=== PATIENT | male | born 1960 | race Caucasian/White ===

== ENCOUNTER → 2016-09-01 | Outpatient (CLI) | payer BC ==
[~2016-09-01] VITALS: Ht 175.3 cm; Wt 102.1 kg
[~2016-09-01] MED LIST: AMLODIPINE BESY10 MG PO; ASPIRIN325 PO; ATORVASTATIN CA80 MG PO; BYSTOLIC10 MG PO; DIOVAN320 MG PO; ESCITALOPRAM OX20 MG PO; FISH OIL 1,001000 M2 PO; IRON325 PO; MOBIC7.5 MG PO; SINGULAIR 10 MG10 M1 PO; VITAMINC500 PO; ZETIA10 MG PO
--- NOTE | ~2016-09-01 | HPC ---
[facility] [place] [address] PAIN MANAGEMENT CONSULTATION Name: SACHA GARVIN Room #: REG [facility] Olesya.#: [id number] Admission: 09/01/16 Attend Phys: Courtney Zhang MD Discharge: Date of : 58 Report #: [id number] THIS REPORT FOR: //name// CC: Courtney Marcial MD DATE OF SERVICE: 09/01/2016 CHIEF COMPLAINT: Low back pain with pain radiating down into the right hip and leg with numbness, weakness and tingling. HISTORY OF PRESENT ILLNESS: The patient is a 56-year-old gentleman who has been referred to the pain clinic for evaluation of back, leg and calf pain. The patient started to experience pain and discomfort in the fall of 2015. Over the last few months, he has noted worsening of his pain to the point that he is having difficulty walking. He rates it as an 8/10. He notes that there is pain in his hip radiating down into his leg and swelling in the lower portion of his back involving his calf. Pain is made worse when he is active and when he is walking a lot. Pain is better when he is not doing as much and resting. He describes it as continuous, shooting, sharp and stabbing with activity. He has not had back surgery. He denies any significant trauma in the past. Denies any bowel or bladder dysfunction. ALLERGIES: No known drug allergies. MEDICATIONS: Iron 325 mg daily, fish oil, vitamin C, aspirin 325 mg daily, meloxicam 7.5 mg daily, Lipitor 80 mg daily, Zetia 10 mg daily, amlodipine 10 mg daily, Singulair 10 mg at bedtime, Bystolic 10 mg, Diovan 320 mg daily, escitalopram 20 mg daily. PAST MEDICAL HISTORY: Hypertension, cardiac disease, coronary artery disease, joint disease/arthritis. PAST SURGICAL HISTORY: Open heart surgery 05/2005, thumb surgery 2007, compound fracture 11/2012. 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 Denies use of tobacco at this point. The patient usually drinks a 20-pack beverage weekly. REVIEW OF SYSTEMS: Questionnaire 14-point reveals generally good health, wears glasses, heart trouble, otherwise unremarkable. LABORATORY DATA: the lumbar spine dated 07/28/2016 reveals normal alignment. Mild degenerative changes noted in the lumbar spine. There is some [facility] [address] [place] [address] PAIN MANAGEMENT CONSULTATION Name: SACHA GARVIN Room #: REG [facility]#: [id number] Admission: 09/01/16 Attend Phys: Courtney Zhang MD Discharge: Date of : 58 Report #: [id number] disk narrowing at L5-S1. No fractures or subluxations identified. No definite bone destruction. Note made of extensive vascular calcification and bilateral renal artery stents. Lumbar spondylosis. PHYSICAL EXAMINATION: Blood pressure 139/71, pulse 66, respiratory rate 18, room air O2 saturation is 97%. The patient's height 175 cm. Weight 102 kilograms. BMI is 33. The patient has not fallen in the last 3 months. He notes pain and discomfort in his lumbar area. It radiates down his right hip into his right leg. Has a positive straight leg raise. Walks with an antalgic gait because of pain and discomfort in the right leg with pain and discomfort radiating down to the anterior portion of his calf. This is in the L5/L4 distribution. Rates his pain as an 8/10 at this juncture. IMPRESSION: Lumbar radiculopathy with an L4-L5 dermatomal distribution. RECOMMENDATION: We discussed treatment options with the patient. Risks and benefits of an epidural steroid injection were discussed. Possible complications were reviewed. A model was used to indicate the area of probable pathology and the patient elects to proceed. PROCEDURE NOTE: The patient was placed in the prone position. Fluoroscopy was used to identify the L4-L5 interspace. This area had been sterilely prepped with Betadine and infiltrated with 0.25% bupivacaine. Total of 80 mg Depo-Medrol, 40 mg triamcinolone was injected. The patient tolerated the procedure well. There were no complications. We would like to thank you for letting us participate in his care. We hope he continues to improve. <ELECTRONICALLY SIGNED> By: Courtney Zhang MD 09/10/16 0829 1432 1536 Courtney Zhang MD /nt
[2016-09-01 12:21] VITALS: BP 139/71
== END | disposition home or self-care (01) ==
LOC: PAIN 05:51
DX: M54.16 Radiculopathy, lumbar region (principal); I10 Essential (primary) hypertension; I25.10 Atherosclerotic heart disease of native coronary artery without angina pectoris; M19.90 Unspecified osteoarthritis, unspecified site

== ENCOUNTER → 2016-09-17 | Outpatient (CLI) | payer BC ==
[~2016-09-17] VITALS: Ht 175.3 cm; Wt 104.9 kg
--- NOTE | ~2016-09-17 | HPC ---
[facility] [place] [address] [place] [address] PAIN MANAGEMENT CONSULTATION Name: SACHA GARVIN Room #: REG [facility] Lavon#: [id number] Admission: 09/17/16 Attend Phys: Courtney Zhang MD Discharge: Date of : 58 Report #: [id number] THIS REPORT FOR: //name// CC: Courtney Marcial MD DATE OF SERVICE: 09/17/2016 CHIEF COMPLAINT: The last injection was helpful. FOLLOWUP HISTORY: The patient is a 56-year-old gentleman who has been seen in the pain clinic because of pain and discomfort in the lower portion of his back with pain radiating down into his leg. He notes that the pain is exacerbated by walking. He feels that he got greater than 50% improvement after the last injection. He rates his pain as a 5-6. He continues to have some pain, which radiates down into his right hip into the right leg. IMPRESSION: Lumbar radiculopathy at the L4-L5 dermatomal distribution improved after the last epidural steroid injection. RECOMMENDATIONS: We discussed treatment options with the patient. Risks and benefits of another epidural steroid injection were reviewed. Possible complications were discussed. The patient elects to proceed. PROCEDURE NOTE: The patient was placed in the prone position. Fluoroscopy was used to identify the L4-L5 interspace. This area had been sterilely prepped with Betadine and infiltrated with 0.25% bupivacaine. Total of 80 mg Depo-Medrol, 40 mg triamcinolone and 2 mL of 0.25% bupivacaine was injected. The patient tolerated the procedure well. There were no complications. His pain decreased to 3 at the time of discharge. He will follow up in the future as needed. We would like to thank you for letting us participate in his care. We hope he continues to improve. A script for Mobic 15 mg 1 p.o. every day has been written. By: 1539 0151 Courtney Zhang MD /nt
[2016-09-17 10:54] VITALS: BP 110/67
== END ==
LOC: PAIN 07:49
DX: M54.16 Radiculopathy, lumbar region (principal); Z87.891 Personal history of nicotine dependence

== ENCOUNTER → 2016-11-21 | Outpatient (CLI) | payer BC | LOC: MRI 07:21 | DX: M48.06 Spinal stenosis, lumbar region (principal); M54.16 Radiculopathy, lumbar region; M51.26 Other intervertebral disc displacement, lumbar region ==

== ENCOUNTER 2016-12-11 06:41 | Observation (INO) | payer BC ==
[~2016-12-11] VITALS: Ht 177.8 cm; Wt 100.6 kg
[2016-12-11] VITALS (28 sets, daily range): BP systolic 102–158; BP diastolic 53–87
--- NOTE | ~2016-12-11 | CATHLAB ---
[facility] [address] [place] [address] INVASIVE PROCEDURE REPORT Name: SACHA GARVIN Room #: 200-I [facility] IN .R.#: [id number] Admission: 12/11/16 Attend Phys: Chi Chaudhry, Discharge: 12/12/16 Date of : 58 Date of Service: 12/26/16 1815 Report #: [id number] THIS REPORT FOR: //name// APPROVED REPORT Patient Details Patient Status: Out-Patient Room #: The patient is a 56 year-old male Event Personnel Chi Chaudhry Construction Safety Manager, Buffy Del Cid RN RN, Contreras Simental RN RN, Agnes Duong Scrub, Laurel Warren RTR Monitor, Kaylyn Zhang Scrernst Procedures Performed Art Access - R femoral artery* LESA Place w/wo Plasty Single RCA [id number] [id number] Initial Mod Sed Same Phys/QHP Gr5y 069082 Coronary Angiography Only [id number] CORANG Hemostasis with Manual pressure , Selective Right and Left Coronary Angiography Procedure Narrative The patient was brought electively to the Cardiac Catheterization Laboratory and was prepped and draped in a sterile manner. The right femoral was infiltrated with 1% Lidocaine subcutaneous anesthesia. A PINNACLE 6FR Sheath #[id number] sheath was inserted into the RFA^. Coronary angiography was performed using coronary diagnostic catheters. The right coronary system was accessed and visualized with a JR 4 Guide catheter. The patient tolerated the procedure well and there were no complications associated with the procedure. There was no hematoma. Intraoperative Conscious Sedation Sedation start time: 08 Case end Time: 08 Fentanyl 100.0 mcg Versed 2.0 mg Fluoro Time: 4.29 minutes Dose: DAP 3979.40 cGycm2 491 mGy Contrast Type and Amount: Omnipaque 65 ml Hemodynamics The aortic pressure is 121/73 mmHg with a mean of 94 mmHg. PCI Technique Lesion Anticoagulation was achieved with Heparin. Patient was preloaded with [facility] [address] [place] [place] [address] INVASIVE PROCEDURE REPORT Name: SACHA GARVIN Room #: 200-I [facility] IN [facility].#: [id number] Admission: 12/11/16 Attend Phys: Chi Chaudhry, Discharge: 12/12/16 Date of : 58 Date of Service: 12/26/16 1815 Report #: [id number] Effient PO 30 mg. Percutaneous coronary intervention was performed on the Unspecifiedmid right coronary artery. A LAUNCHER 6FR FR 4 #[id number] Guide Catheter was used to engage the SVG to RCA ostium. A Luge Wire .014 x 182CM #[id number] Interventional Guidewire was used to cross the lesion. BALLOON DILATION A Balloon catheter Sprinter OTW 2.5 x 12 #[id number] was inserted and inflated up to 10.00atm for 21seconds. STENT DEPLOYMENT A drug-eluting stent RESOLUTE OTW 2.75 X 12 #[id number] was inserted and inflated up to 10.00atm for 18seconds. Additional Inflation: 12.00atm for 27seconds. Conclusion #1 successful PTCA stent drug-eluting 2.75 x12 resolute medicated stent healed in 0% residual postdilated 2.8 mm in size placed in the SVG to the PDA graft mid vessel Recommendations continue dual antiplatelet therapy no lifting for 48 hours no lying in a tub Jacuzzi or Lam for one week Patient to return to CV holding and then CCU overnight. Hemodynamically stable no chest pain or anginal complaints upon transfer <ELECTRONICALLY SIGNED> By: Chi Chaudhry MD, [facility] 12/26/161814 14 14 Chi Chaudhry MD, FACC /INF
[2016-12-11] MEDS ORDERED: TOPROL XL100 MG PO (06:52)
[2016-12-11 07:29] LABS: HEMATOCRIT 38.8 % (42.0-52.0); MCH 31.6 pg (26.0-34.0); MCHC 33.6 g/dL (28.0-37.0); MCV 94.1 fL (80.0-100.0); RBC 4.12 mil/uL (4.50-6.00); RDW 16.4 % (10.5-14.5); WBC 8.2 thou/uL (4.0-11.0)
[2016-12-11] MEDS ORDERED: EFFIENT10 MG PO (07:30)
[2016-12-11 07:45] LABS: CALCIUM 9.7 mg/dL (8.5-10.1); CREATININE 0.8 mg/dL (0.7-1.3); POTASSIUM 4.4 mmol/L (3.5-5.1)
[2016-12-11] MEDS ORDERED: BYSTOLIC 5 MG5 M1 PO (15:48)
[2016-12-12 03:02] VITALS: BP 120/56
[2016-12-12 08:30] VITALS: BP 133/68
[2016-12-12] MEDS ORDERED: ASPIRIN325 PO (10:29)
[2016-12-12 10:51] VITALS: BP 133/68
== END 2016-12-12 11:50 | disposition home or self-care (01) ==
LOC: CATH 06:41 → 2N 09:39 → CATH 11:44 → 2N 12-12 11:50
PROVIDERS: Internal Medicine Cardiovascular Disease
DX: I25.118 Atherosclerotic heart disease of native coronary artery with other forms of angina pectoris (principal); I73.9 Peripheral vascular disease, unspecified; I10 Essential (primary) hypertension; E78.00 Pure hypercholesterolemia, unspecified; M54.17 Radiculopathy, lumbosacral region; I70.1 Atherosclerosis of renal artery; M54.5 Low back pain; I65.23 Occlusion and stenosis of bilateral carotid arteries; Z87.891 Personal history of nicotine dependence; Z72.89 Other problems related to lifestyle; Z95.5 Presence of coronary angioplasty implant and graft

== ENCOUNTER → 2017-01-30 | Outpatient (CLI) | payer OTHER ==
[~2017-01-30] VITALS: Ht 175.3 cm; Wt 102.1 kg
[~2017-01-30] MED LIST changes: +BYSTOLIC 5 MG5 M1 PO; +EFFIENT10 MG PO; +TOPROL XL100 MG PO
--- NOTE | ~2017-01-30 | HPC ---
[facility] [place] [address] [place] [address] PAIN MANAGEMENT CONSULTATION Name: SACHA GARVIN Room #: REG ROSARIO DacostaDerek#: [id number] Admission: 01/30/17 Attend Phys: Courtney Zhang MD Discharge: Date of : 58 Report #: [id number] THIS REPORT FOR: //name// CC: Courtney Marcial MD DATE OF SERVICE: 01/30/2017 FOLLOWUP COMPLAINT: Pain in the back and down into leg. FOLLOWUP HISTORY: The patient is a 56-year-old gentleman who has been seen in the pain clinic because of lumbar radiculopathy. He has undergone epidural steroid injections with benefit. He has noted a recurrence of his pain. Unfortunately since we saw him last, he has had a stent placed. He is followed by Dr. Chaudhry. He is on a blood thinning medication. He would like to proceed with another epidural steroid injection. He has noted improvement in his pain for a short period of time with use of hydrocodone. He has gotten these from Dr. Marcial. He would like to proceed with another injection. He has been using Mobic. He also takes a baby aspirin. He has noticed an increased number of bruises and easy bruisability since onset of his blood thinning medication. PHYSICAL EXAMINATION: Blood pressure 157/102, pulse 96, respiratory rate 16, room air saturation 99%. Height 5 feet 9 inches, weight is 225 pounds, BMI is 32. The patient has pain and discomfort which is radiating down into the L5-L4 distribution. He would like to proceed with another epidural steroid injection. IMPRESSION: 1. Lumbar radiculopathy at the L4-L5 dermatomal distribution, improved after the last injection by greater than 50%. 2. Cardiac disease status post stent placement and treated with an anticoagulant. 3. Peripheral vascular disease. The patient states he has a stenotic area up in the left neck. He is planning on having surgery on this in the future. RECOMMENDATION: The patient will follow up with Dr. Chaudhry. If he is able to stop his blood thinner, we will proceed with an epidural steroid injection. He will continue to get opioid medications from one physician. He has gotten them from Dr. Duncan Marcial will follow up with him in that regard. We would like to thank you for letting us participate in his care. We hope he continues to improve. By: 1414 1453 Courtney Zhagn MD /
[2017-01-30 13:30] VITALS: BP 157/102
== END | disposition home or self-care (01) ==
LOC: PAIN 06:58
DX: M54.16 Radiculopathy, lumbar region (principal); I73.9 Peripheral vascular disease, unspecified; I51.9 Heart disease, unspecified; Z68.32 Body mass index [BMI] 32.0-32.9, adult; Z87.891 Personal history of nicotine dependence

== ENCOUNTER → 2017-02-18 | Outpatient (CLI) | payer OTHER ==
[~2017-02-18] VITALS: Ht 175.3 cm; Wt 105.7 kg
[~2017-02-18] MED LIST changes: +HYDROCODONE-APA1 TA1 PO
--- NOTE | ~2017-02-18 | HPC ---
[facility] [place] [address] [place] [address] PAIN MANAGEMENT CONSULTATION Name: SACHA GARVIN Room #: REG ROSARIO Lavon#: [id number] Admission: 02/18/17 Attend Phys: Courtney Zhang MD Discharge: Date of : 58 Report #: [id number] THIS REPORT FOR: //name// CC: Courtney Marcial MD DATE OF SERVICE: 02/18/2017 FOLLOWUP COMPLAINT: Pain improved greater than 50%. "I am having some pain in my left leg in the inner ankle area. I also have a sore spot in the back of my hip." FOLLOWUP HISTORY: The patient is a 56-year-old gentleman who has been seen in the pain clinic because of lumbar radiculopathy. He has undergone an epidural steroid injection at the last visit. He returns today indicating that his pain has improved overall, but he is still having pain. He has some pain to a tender area in the right posterior spine. He also has pain and discomfort that continues to radiate down from his right leg into the calf with numbness, tingling and weakness. He denies any complication from the last injection. He would like to proceed with another epidural steroid injection. PHYSICAL EXAMINATION: Blood pressure 197/102, pulse 101. Followup blood pressure is 175/93. He has pain and discomfort in the low back area in the posterior superior iliac spine area. He has pain in the right leg, hip, buttocks with radiation down into his leg in the L5 distribution. He continues to have some shooting pain, tingling and aching. IMPRESSION: 1. Lumbar radicular pain at the L4-L5 dermatomal distribution, improved after the last injection by greater than 50%. 2. Cardiac issues, status post stent placement and treated with anticoagulant. 3. Peripheral vascular disease. The patient has an aortic stent in place. 4. Stenotic area in the left neck with consideration of surgery in the future. RECOMMENDATIONS: We discussed treatment options with the patient. Risks and benefits of the procedure were again reviewed. Possible complications of the procedure, which could include but are not limited to infection, increased muscle soreness, headache, bleeding, muscle or nerve trauma. The patient elects to proceed. PROCEDURE NOTE: The patient was placed in the prone position. Fluoroscopy was used to identify the L4-L5 interspace. This area had been sterilely prepped with Betadine and infiltrated with 0.25% bupivacaine. Total of 80 mg Depo-Medrol, 40 mg triamcinolone and 2 mL of 0.25% bupivacaine was injected. [address] [address] PAIN MANAGEMENT CONSULTATION Name: SACHA GARVIN Room #: REG Yadiel Doll#: [id number] Admission: 02/18/17 Attend Phys: Courtney Zhang MD Discharge: Date of : 58 Report #: [id number] The patient tolerated the procedure well. There were no complications. A total of 9 seconds fluoroscopy time was used. By: 1234 0220 Courtney Zhang MD /
[2017-02-18 09:22] VITALS: BP 197/102
== END ==
LOC: PAIN 07:26
DX: M54.16 Radiculopathy, lumbar region (principal); I51.89 Other ill-defined heart diseases; I73.9 Peripheral vascular disease, unspecified; I10 Essential (primary) hypertension; Z79.899 Other long term (current) drug therapy; Z79.82 Long term (current) use of aspirin; Z79.891 Long term (current) use of opiate analgesic; Z87.891 Personal history of nicotine dependence

== ENCOUNTER → 2017-03-11 | Outpatient (CLI) | payer OTHER ==
[~2017-03-11] VITALS: Ht 175.3 cm; Wt 101.6 kg
[~2017-03-11] MED LIST changes: +FLEXERIL PO; +PLAVIX 75 MG TA75 M1 PO
--- NOTE | ~2017-03-11 | HPC ---
[facility] [address] [place] [address] PAIN MANAGEMENT CONSULTATION Name: SACHA GARVIN Room #: REG ROSAIRO DacostaeDrek#: [id number] Admission: 03/11/17 Attend Phys: Courtney Zhang MD Discharge: Date of : 58 Report #: [id number] THIS REPORT FOR: //name// CC: Chi Chaudhry MD [facility] Courtney Marcial MD DATE OF SERVICE: 03/11/2017 FOLLOWUP HISTORY: "The pain has returned and is worse. I am unable to put pressure on my leg." FOLLOWUP HISTORY: The patient is a 56-year-old gentleman seen in the pain clinic because of lumbar radiculopathy. He has undergone a series of 3 epidural steroid injections. He continues to have pain, which is quite problematic. He feels that his pain has worsened significantly. He is now walking with use of crutches. He went to the Emergency Room because of the pain. He notes some pain that continues to radiate down into his right leg with numbness in his calf with tingling and is experiencing weakness to the point that he wants to lift his right leg but pulling up on his hands to get his leg into the truck. PHYSICAL EXAMINATION: Blood pressure 134/92, pulse 137, respiratory rate is 16, room air saturation 99 %. Height 5 feet 9 inches, weight 222 pounds, BMI 33. The patient has not fallen, but he is having difficulty walking secondary to increased weakness involving his right leg as well as pain down into the right calf. He rates his pain as a 10/10 today. He moves his right leg with use of his hand. He has noted some increased weakness. He denies any change in bowel or bladder dysfunction. IMPRESSION: 1. Lumbar radicular pain at L4-L5 dermatomal distribution with increased weakness and pain. The patient states that he is unable to engage in activities of daily living because of the change in his pain and discomfort. 2. Cardiac issues -- status post stent placement and is treated with anticoagulant therapy. 3. Peripheral vascular disease -- patient has an aortic stent in place. 4. Stenotic area in the left neck with consideration of Vascular Surgery in the neck in the future. RECOMMENDATIONS: We discussed treatment options with the patient. Given that he has noted increased pain and discomfort with weakness in his right leg, which requires that he uses his arms to help move his leg. We would recommend that he follow up with a neurosurgeon/orthopedic surgeon. Possible complications of prolonged weakness in his right leg were explained. Possibility of continued paresis in the limb was explained if he suffered prolonged nerve [address] [address] PAIN MANAGEMENT CONSULTATION Name: SACHA GARVIN Room #: REG ROSARIO Doll#: [id number] Admission: 03/11/17 Attend Phys: Courtney Zhang MD Discharge: Date of : 58 Report #: [id number] irritation/pressure. He has a history of cardiac disease and vascular disease. He will need to follow up with his tree planter Dr. Chaudhry prior to any interventions. We will have him see one of the area neurosurgeons. He will call us if he has any problems or concerns. We would like to thank you for letting us participate in his care. We hope he continues to improve. <ELECTRONICALLY SIGNED> By: Courtney Zhang MD 03/13/17 1255 1240 0717 Courtney Zhang MD /[facility]
[2017-03-11 09:53] VITALS: BP 134/92
== END | disposition home or self-care (01) ==
LOC: PAIN 07:08
DX: M54.16 Radiculopathy, lumbar region (principal); I73.9 Peripheral vascular disease, unspecified; Z98.890 Other specified postprocedural states; Z68.33 Body mass index [BMI] 33.0-33.9, adult; Z87.891 Personal history of nicotine dependence

== ENCOUNTER 2017-05-22 05:16 | Inpatient (IN) | payer OTHER ==
[~2017-05-22] VITALS: Ht 177 cm; Wt 106.6 kg
[2017-05-22] VITALS (7 sets, daily range): BP systolic 84–124; BP diastolic 49–84
--- NOTE | ~2017-05-22 | O ---
[facility] [place] [address] [place] [address] OPERATIVE REPORT Name: SACHA GARVIN Room #: 239-P [facility] IN M.R.#: [id number] Admission: 05/22/17 Attend Phys: Mello Ayala MD Discharge: 05/23/17 Date of : 58 Report #: [id number] THIS REPORT FOR: //name// CC: Mello Marcial DATE OF SERVICE: 05/22/2017 PREOPERATIVE DIAGNOSIS: Left internal carotid artery stenosis, asymptomatic. FINAL DIAGNOSIS: Left internal carotid artery stenosis, asymptomatic. OPERATIVE PROCEDURE PERFORMED: Left carotid endarterectomy with bovine pericardial patch angioplasty. SURGEON: Mello Ayala MD DIRECTOR SUPPLY: Nara Moreno. ANESTHESIA: General. OPERATIVE INDICATIONS: The patient is a 57-year-old male with a known history of left internal carotid artery stenosis. His stenosis is asymptomatic. The patient has been evaluated and found to have a high-grade stenosis in the left internal carotid artery greater than 80% and on the right side, there is a moderate stenosis approximately 50-60%. The patient is admitted at this time now after informed consent has been obtained for carotid endarterectomy. OPERATIVE SUMMARY: The patient was brought to the operating room and placed on the OR table in supine position. After anesthesia was induced via the general endotracheal route and monitoring lines have been positioned, the patient was prepped and draped in sterile fashion with chlorhexidine. An oblique incision was made in the left neck. Dissection was carried down medial to the sternocleidomastoid muscle. The contents of the carotid sheath were dissected free from surrounding tissue. Common internal and external carotid arteries were identified and isolated. The vagus and hypoglossal nerves were identified as was the ansa cervicalis nerve and care was taken not to injure them. The patient was given 15,000 units of intravenous heparin. The internal, then common, and then external carotid arteries were clamped. The common carotid arteriotomy was made and extended up into the internal carotid artery. A 12-Romansh shunt was placed in the internal carotid artery and then into the common carotid artery to provide blood flow to the brain during this case. The plaque was then dissected from the wall. It was amputated proximally. Distally, there was good tapering and an eversion endarterectomy was performed of the external carotid artery. All loose fronds were then debrided from the vessel wall. Distally, I placed a couple of 7-0 Prolene tacking sutures on the [address] [address] OPERATIVE REPORT Name: SACHA GARVIN Room #: 239-P [facility] IN .R.#: [id number] Admission: 05/22/17 Attend Phys: Mello Ayala MD Discharge: 05/23/17 Date of : 58 Report #: [id number] intima. The arteriotomy site was then closed with 6-0 Prolene utilizing a bovine pericardial patch. Prior to completing this closure, the site was flushed both retrograde and antegrade, was irrigated and then deaired by releasing the clamp on the external carotid artery. Once closure was completed, the clamp on the common carotid artery was then opened and then finally the clamp on the internal carotid artery. Protamine was given to reverse the heparin. Once satisfactory hemostasis was achieved, the wound was closed in multiple layers with absorbable suture. It should be noted the EEG monitoring was not performed during this case. <ELECTRONICALLY SIGNED> By: Mello Ayala MD 06/02/17 0805 1541 1614 Mello Ayala MD /nt
--- NOTE | ~2017-05-22 | S ---
[facility] [place] [address] [place] [address] SURGICAL PATH RPT PROCEDURE Name: SACHA GARCIA Room #: 239-P DIS IN M.R.#: [id number] Admission: 05/22/17 Date of : 58 Discharge: 05/23/17 Report #: [id number] Path Case #: [id number] PATHOLOGY REPORT COLLECTION DATE: 05/22/2017 RECEIVED DATE: 05/22/2017 SUBMITTING PHYS: Dr. Mello Ayala OTHER PHYS: Dr. Duncan Marcial SPECIMEN(S) RECEIVED: A.Left carotid plaque * * * * * * * * * * * * FINAL DIAGNOSIS: A. Left carotid plaque: - Calcified atheromatous plaque. PATHOLOGIST: Mello Terry M.D. REPORT ELECTRONICALLY SIGNED BY: Mello Terry M.D. DATE/TIME: 05/25/2017 12:28 * * * * * * * * * * * * GROSS PATHOLOGY: Received in formalin labeled "Sacha Garcia left carotid artery plaque" is a 3.0 x 0.9 x 0.7 cm tubular portion of bello-yellow calcified soft tissue. Approximately 90% of the specimen is comprised of calcifications. Order Picker/Assembler sections are submitted in cassette A1 following decalcification. ([facility]; 05/24/2017) CLINICAL HISTORY: Carotid stenosis. INITIAL CPT CODE(S): A; 82609 Professional services performed by [facility] at [facility] [address], [place] [address] Technical services performed by [facility] at [address] [place] [address], [address], [place] [address] [facility] [address] [place] [address] SURGICAL PATH RPT PROCEDURE Name: SACHA GARCIA RADHA Room #: 239-P DIS IN M.R.#: [id number] Admission: 05/22/17 Date of : 58 Discharge: 05/23/17 Report #: [id number] Path Case #: [id number] [address] PHONE: [phone] DIRECTOR: Stew Woody M.D. * * * END OF REPORT * * *
[~2017-05-22 05:16] MED LIST changes: +AMBIEN 5 MG TABL5 M1 PO; +CARAFATE 11 GM/10 M1 PO; -HYDROCODONE-APA1 TA1 PO; +MOBIC15 MG PO; +NEXIUM40 MG PO; +NORCO 10-325 T1 EACH PO; +NORCO 7.5-3251 EACH PO; +PACERONE 200 M200 M1 PO; +PROTONIX40 M1 PO; +VITAMIN B COMP1 EACH PO
[2017-05-22 09:57] LABS: HEMATOCRIT 39.9 % (42.0-52.0); MCH 27.9 pg (26.0-34.0); MCHC 32.6 g/dL (28.0-37.0); MCV 85.6 fL (80.0-100.0); RBC 4.67 mil/uL (4.50-6.00); RDW 15.4 % (10.5-14.5); WBC 7.5 thou/uL (4.0-11.0)
[2017-05-22 10:02] LABS: CALCIUM 9.6 mg/dL (8.5-10.1); CREATININE 1.1 mg/dL (0.7-1.3); POTASSIUM 3.7 mmol/L (3.5-5.1)
[2017-05-22 10:08] LABS: ALBUMIN 3.6 g/dL (3.4-5.0); TOTAL BILIRUBIN 0.4 mg/dL (<0.1-1.0); TOTAL PROTEIN 7.5 g/dL (6.4-8.2)
[2017-05-22 10:11] LABS: APTT 24.6 Seconds (24.5-32.8); PROTIME 9.8 Seconds (9.3-11.4)
[2017-05-22] MEDS ORDERED: ASPIRIN EC325 M1 PO (15:24)
[2017-05-23] VITALS (10 sets, daily range): BP systolic 101–133; BP diastolic 55–85
[2017-05-23 05:55] LABS: CALCIUM 8.4 mg/dL (8.5-10.1); CREATININE 0.9 mg/dL (0.7-1.3); POTASSIUM 3.6 mmol/L (3.5-5.1)
[2017-05-26] MEDS ORDERED: LASIX 40 MG TAB40 M2 PO (11:23)
[2017-05-26] MEDS ORDERED: K-DUR 20 MEQ T20 MEQ PO (11:23)
== END 2017-05-23 14:45 | disposition home or self-care (01) | DRG 39 ==
LOC: TBA 05:16 → PRE 12:09 → ICU 16:44
PROVIDERS: Nurse Practitioner; Thoracic Surgery (Cardiothoracic Vascular Surgery)
DX: I65.22 Occlusion and stenosis of left carotid artery (principal); I10 Essential (primary) hypertension; I25.10 Atherosclerotic heart disease of native coronary artery without angina pectoris; E78.5 Hyperlipidemia, unspecified; D64.9 Anemia, unspecified; M19.90 Unspecified osteoarthritis, unspecified site; Z95.1 Presence of aortocoronary bypass graft; Z28.21 Immunization not carried out because of patient refusal
CPT/HCPCS: 10078; 50010; 50101; 50386; 50417; 51301; 52279; 56524; 56526; 56528; 56534; 56639; 62110; 62900; 65020; 65040; 70005

== ENCOUNTER 2017-05-28 05:21 | Inpatient (IN) | payer OTHER ==
[~2017-05-28] VITALS: Ht 177.8 cm; Wt 110.7 kg
--- NOTE | ~2017-05-28 | O ---
[facility] [place] [address] OPERATIVE REPORT Name: SACHA GARVIN Room #: 408-P ADM IN M.R.#: [id number] Admission: 06/16/17 Attend Phys: Vance Velázquez MD Discharge: Date of : 58 Report #: [id number] THIS REPORT FOR: //name// CC: Vance Marcial DATE OF SERVICE: 06/16/2017 PREOPERATIVE DIAGNOSIS: Right hip stage 4 avascular necrosis. POSTOPERATIVE DIAGNOSIS: Right hip stage 4 avascular necrosis. PROCEDURE: Right total hip arthroplasty. SURGEON: Vance Velázquez MD. MAINFRAME APPLICATIONS DEVELOPER: Debbie Chin PA-C. INDICATIONS FOR ASSISTANCE: Throughout the case, extensive retraction, manipulation, dislocation and reduction of the hip were required. This was afforded to me by my metal forger's assistant. ANESTHESIA: General endotracheal. IMPLANTS: [employer]hew size 15 high offset Synergy press fit stem, a size 56 R3 acetabular cup with one acetabular screw and a size 40+4 Oxinium head. ESTIMATED BLOOD LOSS: 50 mL. COMPLICATIONS: None. SPECIMENS: None. CONDITION UPON LEAVING THE OPERATING ROOM: Stable. INDICATION FOR PROCEDURE: The patient is a 57-year-old gentleman who has stage 4 avascular necrosis of the right femoral head. He had failed conservative treatment for this and after discussion with him, he elected for right total hip arthroplasty. DESCRIPTION OF PROCEDURE: Risks, benefits, alternatives, complications were discussed in detail with the patient including but not limited to risk of anesthesia, risk of damage to nerves, arteries, blood vessels, risk for infection, bleeding, risk for continued hip pain, leg length discrepancy, instability and need for reoperation. Informed consent was obtained from the patient. The right hip was appropriately marked in the preoperative holding [address] [address] OPERATIVE REPORT Name: SACHA GARVIN Room #: 408-P [facility] IN M.R.#: [id number] Admission: 06/16/17 Attend Phys: Vance Velázquez MD Discharge: Date of : 58 Report #: [id number]. IV vancomycin was given for preoperative antibiotics secondary to previous history of MRSA. He was brought to the operating room, and general endotracheal anesthesia was induced without complication. He was then placed in the left lateral decubitus position with the right hip uppermost. Right hip and lower extremity were prepped and draped in normal sterile fashion. Timeout was performed properly identifying the patient and procedure as well as instrumentation. All in the operating room were in agreement. Standard posterior approach to the hip was made with 10 blade through the skin. Dissection was taken down to the fascia with Bovie cautery, and Hale elevator was used to clean off the fascia. Fascial incision was made with a 10 blade, and this was taken proximally and distally with curved Subramanian scissor. Charnley retractor was placed. Trochanteric bursa was taken down with Bovie cautery. Piriformis tendon was identified, tagged and taken down with Bovie. Short external rotators were also taken down with Bovie cautery. Capsulotomy was made and capsule ends were tagged for later repair. Hip dislocated, and there was extensive avascular necrosis of the femoral head with secondary collapse. Femoral neck cut was made 1 cm proximal to lesser trochanter based on preoperative templating, and the femoral head was removed. Deep acetabular retractors were placed, and the labrum was removed sharply. Pulvinar was removed with Bovie cautery. The acetabulum was then sequentially reamed up to a size 56, at which point, there was excellent bleeding cancellous bone. A size 55 trial cup was placed, found to have a good fit. Final size 56 R3 acetabular cup was placed and one acetabular screw was placed for backup fixation. Polyethylene liner for a 40 head was placed. After this, attention was turned to the femur. This was reamed and broached up to a size 15, at which point, the size 15 broach was stable. This was trialed with a high offset neck and a 40+0 head. Hip was reduced, taken through range of motion, found to be stable, found to have a somewhat short leg length compared to the left side. It was felt this could be made up for in the final implant. Hip was dislocated, and the broach was removed. A final size 15 high offset Synergy press fit stem was placed. This was trialed with a 40+4 head. Hip was reduced, taken through range of motion, found to be stable, found to have equal leg lengths. Hip was dislocated again, and a trial head was removed. A final size 40+4 Oxinium head was placed. Hip was reduced, taken through range of motion, found to be stable, found to have equal leg lengths. Periarticular injection consisting of morphine, ropivacaine, epinephrine and Toradol was placed around the hip joint capsule. A gram of vancomycin was placed deep in the joint. The capsule and piriformis were repaired with 0 FiberWire. Fascia was closed with 0 Vicryl, skin was closed with 2-0 Vicryl, 3-0 Monocril, Dermabond and a ALBERTO dressing was applied. The patient tolerated this procedure well and went to the recovery room under the care of anesthesia postoperatively. <ELECTRONICALLY SIGNED> By: Vance Velázquez MD 06/17/17 1407 1125 1147 Vance Velázquez MD /nt
[~2017-05-28 05:21] MED LIST changes: +ASPIRIN EC325 M1 PO; +K-DUR 20 MEQ T20 MEQ PO; +LASIX 40 MG TAB40 M2 PO
[2017-06-01 13:00] LABS: HEMATOCRIT 33.7 % (42.0-52.0); HEMOGLOBIN 11.3 gm/dL (14.0-18.0); MCH 28.5 pg (26.0-34.0); MCHC 33.5 g/dL (28.0-37.0); RBC 3.96 mil/uL (4.50-6.00); RDW 15.5 % (10.5-14.5); WBC 6.9 thou/uL (4.0-11.0)
[2017-06-01 13:07] LABS: URINE BILIRUBIN NEGATIVE (Negative); URINE BLOOD NEGATIVE (Negative); URINE CLARITY CLEAR; URINE COLOR YELLOW; URINE GLUCOSE-RANDOM* NEGATIVE (Negative); URINE KETONES TRACE (Negative); URINE LEUKOCYTES-REFLEX NEGATIVE (Negative); URINE NITRITE-REFLEX NEGATIVE (Negative); URINE PROTEIN (DIPSTICK) NEGATIVE (Negative); URINE UROBILINOGEN 0.2 E.U./dl (0.2-1.0)
[2017-06-01 13:10] LABS: ALBUMIN 3.5 g/dL (3.4-5.0); CALCIUM 8.8 mg/dL (8.5-10.1); POTASSIUM 3.6 mmol/L (3.5-5.1)
[2017-06-16] VITALS (7 sets, daily range): BP systolic 94–134; BP diastolic 44–92
[2017-06-17 00:29] VITALS: BP 120/75
[2017-06-17 04:00] VITALS: BP 117/70
[2017-06-17 05:16] LABS: HEMATOCRIT 32.2 % (42.0-52.0); HEMOGLOBIN 10.6 gm/dL (14.0-18.0); MCH 28.2 pg (26.0-34.0); MCHC 32.9 g/dL (28.0-37.0); MCV 85.7 fL (80.0-100.0); RBC 3.75 mil/uL (4.50-6.00); RDW 16.2 % (10.5-14.5); WBC 11.7 thou/uL (4.0-11.0)
[2017-06-17 07:40] VITALS: BP 104/68
[2017-06-17 16:06] VITALS: BP 103/72
[2017-06-17 20:00] VITALS: BP 95/65
[2017-06-18 04:00] VITALS: BP 112/72
[2017-06-18 05:54] LABS: HEMATOCRIT 30.9 % (42.0-52.0); HEMOGLOBIN 10.4 gm/dL (14.0-18.0); MCH 28.7 pg (26.0-34.0); MCHC 33.8 g/dL (28.0-37.0); MCV 84.7 fL (80.0-100.0); RBC 3.64 mil/uL (4.50-6.00); RDW 16.3 % (10.5-14.5); WBC 7.5 thou/uL (4.0-11.0)
[2017-06-18 08:26] VITALS: BP 117/64
[2017-06-18] MEDS ORDERED: VITAMINC500 PO (08:56)
[2017-06-18] MEDS ORDERED: VITAMIN B COMPLEX PO (08:56)
[2017-06-18 09:18] VITALS: BP 112/72
[2017-06-18 09:23] VITALS: BP 112/72
[2017-08-14] MEDS ORDERED: ASPIR 8181 MG PO (07:26)
[2017-08-14] MEDS ORDERED: CARDIZEM CD180 MG PO (07:38)
[2017-08-14] MEDS ORDERED: PRADAXA150 MG PO (07:38)
== END 2017-06-18 14:40 | disposition home or self-care (01) | DRG 470 ==
LOC: PRE 05:21 → TBA 06-16 05:20 → 4N 06-16 05:20 → PRE 06-16 06:07 → 4N 06-16 17:48 → ENTRNSPT 06-18 14:33 → EDTRNSPTSTS 06-18 14:34 → 4N 06-18 14:40 → PRE 07-30 10:30
PROVIDERS: Orthopaedic Surgery
PROC: 0SR901Z Replacement of Right Hip Joint with Metal Synthetic Substitute, Open Approach (ICD-10-PCS; principal; 2017-06-16)
DX: M87.9 Osteonecrosis, unspecified (principal); B15.9 Hepatitis A without hepatic coma; M87.851 Other osteonecrosis, right femur; I25.10 Atherosclerotic heart disease of native coronary artery without angina pectoris; I48.91 Unspecified atrial fibrillation; I10 Essential (primary) hypertension; G89.29 Other chronic pain; M54.9 Dorsalgia, unspecified; K21.9 Gastro-esophageal reflux disease without esophagitis; I73.9 Peripheral vascular disease, unspecified; F32.9 Major depressive disorder, single episode, unspecified; M16.11 Unilateral primary osteoarthritis, right hip; E78.5 Hyperlipidemia, unspecified; G62.9 Polyneuropathy, unspecified; D64.9 Anemia, unspecified; Z79.82 Long term (current) use of aspirin; Z82.61 Family history of arthritis; Z87.891 Personal history of nicotine dependence; Z95.1 Presence of aortocoronary bypass graft; Z79.899 Other long term (current) drug therapy; Z82.49 Family history of ischemic heart disease and other diseases of the circulatory system; Z95.5 Presence of coronary angioplasty implant and graft
CPT/HCPCS: 10790; 50010; 50101; 50382; 50414; 51771; 53000; 53078; 53365; 54118; 56524; 56527; 56528; 56530; 57095; 62110; 62900; 70005

== ENCOUNTER → 2017-08-14 | Outpatient (CLI) | payer OTHER ==
[~2017-08-14] VITALS: Ht 177.8 cm; Wt 108.9 kg
[~2017-08-14] MED LIST changes: +ASPIR 8181 MG PO; +CARDIZEM CD180 MG PO; +PRADAXA150 MG PO; +VITAMIN B COMPLEX PO
--- NOTE | ~2017-08-14 | P ---
[facility] [place] [address] PROCEDURE REPORT Name: SACHA GARVIN Room #: REG ROSARIO AntunezDerekMillie.#: [id number] Admission: 08/14/17 Attend Phys: Johnny Burnett MD Discharge: Date of : 58 Report #: [id number] THIS REPORT FOR: //name// CC: Chi Marcial DATE OF SERVICE: 08/14/2017 PREOPERATIVE DIAGNOSIS: Typical atrial flutter. POSTOPERATIVE DIAGNOSIS: Typical atrial flutter. PROCEDURES PERFORMED: 1. SVT ablation, CPT code 70257. 2. EP with left atrial pacing and recording, CPT code 51194. 3. 3D mapping, CPT code 36903. HISTORY OF PRESENT ILLNESS: The patient is a 57-year-old male with a history of coronary artery disease status post CABG and history of typical atrial flutter. He is here for atrial flutter ablation. ANESTHESIA: The patient underwent MAC anesthesia with no anesthesia related complications. PROCEDURE: The patient underwent informed consent where we discussed the details of the procedure including the risks, which include, but not limited to bleeding, vascular damage, cardiac perforation as well as stroke or NC. He understood these risks and was willing to proceed. The patient was brought to the EP laboratory in a fasting and sedated state and prepped and draped in a sterile fashion. I injected lidocaine to the right groin and obtained access to the right femoral vein times 3. I placed an 8-Danish and two 7-Danish short sheaths using the modified Seldinger technique. Next, under fluoroscopy, I placed a decapolar catheter in the coronary sinus and a halo catheter in the right atrium. At baseline, the patient was in typical atrial flutter with an atrial cycle length of 250 milliseconds and a concentric activation along the CS and a counter clockwise activation along the halo catheter. The ventricular cycle length was 550 milliseconds, the QRS duration was 80 milliseconds and the QT interval was 345 milliseconds. Entrainment was performed from CS1, 2 and halo 1, 2. From halo 1, 2, the post-pacing interval minus tachycardia cycle length was 20 milliseconds consistent with cavotricuspid isthmus dependent flutter. Next, I exchanged one of my short sheaths for a ramp sheath and an 8-mm Biosense Santiago ablation catheter. Next, detailed 3D geometry was created of the right atrium. Next, ablation was performed at 70 badillo and 60 degrees. A continuous drag lesion was created and once I reached [facility] [address] [place] [address] PROCEDURE REPORT Name: SACHA GARVIN Room #: REG [facility]#: [id number] Admission: 08/14/17 Attend Phys: Johnny Brunett MD Discharge: Date of : 58 Report #: [id number] the posterior aspect of the isthmus, there was termination of the tachycardia. Pacing was performed and there was evidence of bidirectional block with transisthmus conduction time of 160 milliseconds. Differential pacing from halo 1, 2 and halo 3, 4 was consistent with lateral to medial block. Double potentials along the ablation line were 170 milliseconds in duration. POST-ABLATION TESTING: Post-ablation, the patient was in sinus rhythm, AV block was noted at 400 milliseconds and AV arcelia ERP was noted at 320 milliseconds at a [address] cycle length. Atrial burst pacing was performed down to 250 milliseconds and no other arrhythmias were induced. There was no atrial fibrillation noted. The ablation lesion set was rechecked and there were no gaps noted. The transisthmus conduction time remained at 160 milliseconds with an activation sequence consistent with bidirectional block. Post-ablation, he was in sinus rhythm with a sinus cycle length of 780 milliseconds, DE interval 190 milliseconds, QRS duration 95 milliseconds and QT interval 425 milliseconds. As such, all catheters and sheaths were pulled, hemostasis obtained and the patient awoke neurologically and hemodynamically intact. CONCLUSIONS: 1. Successful atrial flutter ablation with evidence of bidirectional block post-ablation. 2. Normal SA arcelia function. 3. Normal AV arcelia function. 4. Normal His-Purkinje function. 5. No other inducible arrhythmias on or off isoproterenol. <ELECTRONICALLY SIGNED> By: Johnny Burnett MD 08/28/17 1751 [id number] 1138 Johnny Burnett MD /nt
[2017-08-14 07:12] VITALS: BP 164/96
[2017-08-14 07:25] LABS: ABSOLUTE NEUTROPHILS 4.2 thou/uL (1.4-8.2); BASOPHILS 1.4 % (0.0-2.0); EOSINOPHILS 3.9 % (0.0-3.0); HEMATOCRIT 39.2 % (42.0-52.0); HEMOGLOBIN 12.8 gm/dL (14.0-18.0); LYMPHOCYTES 15.8 % (24.0-44.0); MCH 27.3 pg (26.0-34.0); MCHC 32.6 g/dL (28.0-37.0); MCV 83.7 fL (80.0-100.0); MONOCYTES 10.1 % (1.0-8.0); PLATELET COUNT 207 thou/uL (150-400); POLYS 68.8 % (36.0-66.0); RBC 4.68 mil/uL (4.50-6.00); RDW 16.2 % (10.5-14.5); WBC 6.1 thou/uL (4.0-11.0)
[2017-08-14 07:34] LABS: CALCIUM 9.2 mg/dL (8.5-10.1); CREATININE 0.9 mg/dL (0.7-1.3); POTASSIUM 3.4 mmol/L (3.5-5.1)
[2017-08-14 07:40] LABS: ALBUMIN 3.6 g/dL (3.4-5.0); APTT 27.2 Seconds (24.5-32.8); PROTIME 10.2 Seconds (9.3-11.4); TOTAL BILIRUBIN 0.5 mg/dL (<0.1-1.0); TOTAL PROTEIN 6.9 g/dL (6.4-8.2)
== END | disposition home or self-care (01) ==
LOC: CATH 06:46
PROVIDERS: Internal Medicine Cardiovascular Disease
DX: I48.3 Typical atrial flutter (principal); I10 Essential (primary) hypertension; I25.10 Atherosclerotic heart disease of native coronary artery without angina pectoris; E78.5 Hyperlipidemia, unspecified; K21.9 Gastro-esophageal reflux disease without esophagitis; I73.89 Other specified peripheral vascular diseases; D64.9 Anemia, unspecified; F32.89 Other specified depressive episodes; Z95.5 Presence of coronary angioplasty implant and graft; Z96.641 Presence of right artificial hip joint; Z95.1 Presence of aortocoronary bypass graft; Z79.899 Other long term (current) drug therapy; Z87.891 Personal history of nicotine dependence; Z98.890 Other specified postprocedural states; Z82.49 Family history of ischemic heart disease and other diseases of the circulatory system; Z79.82 Long term (current) use of aspirin; Z79.01 Long term (current) use of anticoagulants
CPT/HCPCS: 62110; 62900; 70005

== ENCOUNTER → 2017-08-17 | Outpatient (CLI) | payer OTHER ==
--- NOTE | ~2017-08-17 | 2DMMODE ---
[facility] [address] [place] [address] 2 D/M-MODE ECHOCARDIOGRAM Name: SACHA GARVIN Room #: REG [facility]#: [id number] Admission: 08/17/17 Attend Phys: Johnny Burnett Discharge: Date of : 58 Date of Service: 08/17/17 1555 Report #: [id number] THIS REPORT FOR: //name// APPROVED REPORT Study performed: 08/17/2017 14:52:34 EXAM: Comprehensive 2D, Doppler, and color-flow Echocardiogram Patient Location: Out-Patient Status: routine BSA: 2.25 HR: 67 bpm BP: 167/85 mmHg Rhythm: NSR Other Information Study Quality: Good Indications Hypertension, short of breath. Status post ablation on 08/13/17. Hx: CABG, Stents, HTN, HLP 2D Dimensions RVDd: 43.92 mm LVEF(%): 59.44 (>50%) IVSd: 12.23 (7-11mm) LVOT Diam: 22.71 (18-24mm) LVDd: 51.48 mm PWd: 12.27 (7-11mm) Ascending Ao: 33.28 (22-36mm) LVDs: 35.13 (25-40mm) Aortic Root: 32.40 mm Javed's LVEF: 59.44 % Volumes Left Atrial Volume (Systole) Single Plane 4CH: 102.70 mL Single Plane 2CH: 96.39 mL LA ESV Index: 49.00 mL/m2 Aortic Valve AoV Peak Ashok.: 1.63 m/s AO Peak Gr.: 10.58 mmHg LVOT Max P.78 mmHg LVOT Max V: 0.97 m/s DORIAN Vmax: 2.42 cm2 Mitral Valve E/A Ratio: 3.1 [facility] [place] [address] 2 D/M-MODE ECHOCARDIOGRAM Name: SACHA GARVIN RADHA Room #: AARON Doll#: [id number] Admission: 08/17/17 Attend Phys: Johnny Burnett Discharge: Date of : 58 Date of Service: 08/17/17 1555 Report #: [id number] MV Decel. Time: 186.82 ms MV E Max Ashok.: 1.37 m/s MV A Ashok.: 0.44 m/s MV PHT: 54.18 ms IVRT: 48.44 ms Pulmonary Valve PV Peak Ashok.: 0.89 m/s PV Peak Gr.: 3.19 mmHg Tricuspid Valve TR Peak Ashok.: 3.11 m/s RAP Estimate: 5.00 mmHg TR Peak Gr.: 38.57 mmHg PA Pressure: 44.00 mmHg Left Ventricle The left ventricle is normal size. There is normal LV segmental wall motion. Mild concentric left ventricular hypertrophy. Left ventricular systolic function is normal. LVEF is 60%. Severe diastolic dysfunction is present (restrictive filling). Right Ventricle Right ventricle is at the upper limits of normal. The right ventricular systolic function is normal. Atria Left atrium is severely dilated. Right atrium is mildly dilated. Aortic Valve Aortic valve is mildly calcified. Trace aortic regurgitation. There is no aortic valvular stenosis. Mitral Valve Mitral valve leaflets are mildly thickened. Mild mitral regurgitation. Tricuspid Valve The tricuspid valve is normal in structure. Mild to moderate tricuspid regurgitation. Estimated PAP is 45mmHg. Pulmonic Valve The pulmonary valve is normal in structure. Mild pulmonic regurgitation. Great Vessels The aortic root is normal in size. The ascending aorta is normal in [facility] [address] [place] [address] 2 D/M-MODE ECHOCARDIOGRAM Name: SACHA GARVIN Room #: REG [facility]#: [id number] Admission: 08/17/17 Attend Phys: [facility] Discharge: Date of : 58 Date of Service: 08/17/17 1555 Report #: [id number] size. IVC is normal in size and collapses >50% with inspiration. Pericardium There is no pericardial effusion. <Conclusion> The left ventricle is normal size. LVEF is 60%. Left atrium is severely dilated. Right atrium is mildly dilated. Aortic valve is mildly calcified. Trace aortic regurgitation. Mitral valve leaflets are mildly thickened. Mild mitral regurgitation. The tricuspid valve is normal in structure. Mild to moderate tricuspid regurgitation. Estimated PAP is 45mmHg. The pulmonary valve is normal in structure. Mild pulmonic regurgitation. There is no pericardial effusion. <ELECTRONICALLY SIGNED> By: Bright Cullen MD 08/17/17 1555 1555 1555 Bright Cullen MD /INF
== END ==
LOC: CV 14:26
DX: I08.1 Rheumatic disorders of both mitral and tricuspid valves (principal); I10 Essential (primary) hypertension; E78.5 Hyperlipidemia, unspecified; Z95.1 Presence of aortocoronary bypass graft

== ENCOUNTER → 2017-09-18 | Outpatient (CLI) | payer OTHER | LOC: SLEEPLAB 12:45 | DX: G47.33 Obstructive sleep apnea (adult) (pediatric) (principal) ==

== ENCOUNTER → 2018-03-31 | Outpatient (CLI) | payer OTHER | LOC: RAD 09:39 | DX: S91.101A Unspecified open wound of right great toe without damage to nail, initial encounter (principal); X58.XXXA Exposure to other specified factors, initial encounter; Y93.89 Activity, other specified; Y92.89 Other specified places as the place of occurrence of the external cause; Y99.8 Other external cause status ==